=== PATIENT | female | born 1970 | race Caucasian/White ===

== ENCOUNTER 2016-11-26 15:04 | Inpatient (IN) | payer MEDICAID ==
[~2016-11-26] VITALS: Ht 165.1 cm; Wt 84.9 kg
[~2016-11-26 15:04] MED LIST: DOCU-94 PO; ESTR1TAB36 PO; FAM20T PO; GABA-494 PO; MELO7.5S PO; METO-281 PO; OMEP20CA5 PO; OXYB5TAB62 PO; RANI300C7 PO; SUCR1TAB36 PO; TIZA4TAB3 PO
[2016-11-26 15:58] LABS: Basophils # (auto) 0 uL; Basophils % (auto) 0.4 % (0.0-2.0); Eosinophils # (auto) 0.1 uL; Eosinophils % (auto) 0.9 % (0.0-7.0); Hematocrit 39.9 % (36.0-46.0); Hemoglobin 12.8 g/dL (12.2-16.2); Lymphocytes # (auto) 1.4 uL; Lymphocytes % (auto) 16.9 % (10.0-50.0); Mean Corpuscular Hemoglobin 27.8 pg (28.0-32.0); Mean Corpuscular Hgb Conc. 32.2 g/dL (32.0-36.0); Mean Corpuscular Volume 86.3 fL (80.0-100.0); Monocytes # (auto) 0.8 uL; Monocytes % (auto) 9.8 % (0.0-12.0); Neutrophils # (auto) 5.8 uL; Platelet Count (auto) 219 10^3/uL (140-450); Red Cell Distribution Width 14.1 % (11.6-16.0); White Blood Cell 8.1 10^3/uL (4.4-10.8)
[2016-11-26 16:04] LABS: Urine Bilirubin Negative (Negative); Urine Blood TRACE /uL (Negative); Urine Color Yellow (Yellow); Urine Glucose Normal (Normal); Urine Ketone Negative (Negative); Urine Nitrite Negative (Negative); Urine RBC 1 /hpf (0 - 4); Urine Squamous Epithelial Cell FEW /hpf (<5); Urine Urobilinogen Normal (Negative)
[2016-11-26 16:06] LABS: Albumin 3.7 g/dL (3.4-5.0); BUN/Creatinine Ratio 14.9; Bilirubin, Total 0.5 mg/dL (0.2-1.0); Calcium 9.2 mg/dL (8.5-10.1); Potassium 3.7 mmol/L (3.5-5.1)
[2016-11-26] MEDS ORDERED: IOHEXOL 300 MG/ML 100ML BOTTLE IJ ONE (19:56)
[2016-11-26] MEDS ORDERED: MORPHINE SULFATE 4 MG/ML SYRG IV ONE (20:00)
[2016-11-26] MEDS ORDERED: ONDANSETRON HCL 4 MG/2 ML VIAL IV ONE (20:00)
[2016-11-26] MEDS ORDERED: SODIUM CHLORIDE 0.9% 500 ML IVB ONE (20:04)
[2016-11-26] MEDS ORDERED: HYDROmorphone HCL 2 MG/ML VL IV ONE (20:15)
[2016-11-26] MEDS ORDERED: PANTOPRAZOLE SODIUM 40 MG/10 ML VIAL IV ONE (20:15)
[2016-11-26 20:33] LABS: Amylase 47 U/L (25-115)
[2016-11-26] MEDS ORDERED: metroNIDAZOLE 500MG/100ML 100 ML IV ONE (21:00)
[2016-11-26] MEDS: SODIUM CHLORIDE 0.9% 1,000 ML IV SCH (23:20)
[2016-11-26] MEDS ORDERED: HYDROcodone-ACET 5/325MG TAB PO PRN (23:30)
[2016-11-26] MEDS ORDERED: cefTRIAXone 1GM/50ML D5W 50 ML IV ONE (23:30)
[2016-11-26] MEDS ORDERED: TEMAZEPAM 15 MG CAP PO PRN (23:30)
[2016-11-26] MEDS ORDERED: ACETAMINOPHEN 325 MG TAB PO PRN (23:30)
[2016-11-26 23:59] VITALS: BP 116/70
[2016-11-27] MEDS: MORPHINE SULF INJ 2 MG/ML SYRINGE 1ML IV PRN ×3 (00:25→09:30)
[2016-11-27] MEDS: ONDANSETRON HCL 4 MG/2 ML VIAL IV PRN ×6 (01:10→21:42)
[2016-11-27 04:47] VITALS: BP 122/66
[2016-11-27] MEDS: metroNIDAZOLE 500MG/100ML 100 ML IV SCH ×3 (05:32→21:42)
[2016-11-27 06:02] LABS: Basophils # (auto) 0 uL; Basophils % (auto) 0.4 % (0.0-2.0); Eosinophils # (auto) 0.1 uL; Eosinophils % (auto) 2.1 % (0.0-7.0); Hematocrit 35.8 % (36.0-46.0); Hemoglobin 11.4 g/dL (12.2-16.2); Lymphocytes # (auto) 1.6 uL; Lymphocytes % (auto) 27.5 % (10.0-50.0); Mean Corpuscular Hemoglobin 27.5 pg (28.0-32.0); Mean Corpuscular Hgb Conc. 31.9 g/dL (32.0-36.0); Mean Corpuscular Volume 86.3 fL (80.0-100.0); Mean Platelet Volume 10.7 fL (7.4-10.4); Monocytes # (auto) 0.9 uL; Monocytes % (auto) 15.9 % (0.0-12.0); Neutrophils # (auto) 3.2 uL; Neutrophils % (auto) 54.1 % (37.0-80.0); Platelet Count (auto) 199 10^3/uL (140-450); Red Cell Distribution Width 14.6 % (11.6-16.0); White Blood Cell 5.9 10^3/uL (4.4-10.8)
[2016-11-27 06:37] LABS: Albumin 3.1 g/dL (3.4-5.0); BUN/Creatinine Ratio 14.3; Bilirubin, Total 0.5 mg/dL (0.2-1.0); Potassium 3.6 mmol/L (3.5-5.1); Total Protein 6.6 g/dL (6.4-8.2)
[2016-11-27] MEDS: SUCRALFATE 1 GM/10 ML ORAL SUSP PO SCH ×2 (07:03→17:45)
[2016-11-27 09:00] VITALS: BP 116/53
[2016-11-27] MEDS: cefTRIAXone 1GM/50ML D5W 50 ML IV SCH (09:29)
[2016-11-27] MEDS: OXYBUTYNIN CHL 5 MG TAB PO SCH ×2 (09:30→21:42)
[2016-11-27] MEDS: FAMOTIDINE 20 MG TAB PO SCH ×2 (09:30→21:42)
[2016-11-27] MEDS: DOCUSATE SOD 100 MG CAP PO SCH ×3 (09:30→21:42)
[2016-11-27] MEDS: GABAPENTIN 100 MG CAP PO SCH ×2 (09:30→21:42)
[2016-11-27] MEDS: ENOXAPARIN SOD 40 MG/0.4 ML SYRINGE SC SCH (09:36)
[2016-11-27] MEDS ORDERED: ENOXAPARIN SOD 30 MG/0.3 ML SYRINGE SC SCH (10:00)
[2016-11-27 13:00] VITALS: BP 131/72
[2016-11-27] MEDS: HYDROmorphone HCL 2 MG/ML VL IV PRN ×3 (13:31→21:42)
[2016-11-27 17:00] VITALS: BP 117/76
[2016-11-27] MEDS: SODIUM CHLORIDE 0.9% 1,000 ML IV SCH (17:40)
[2016-11-27 22:00] VITALS: BP 127/70
[2016-11-28] MEDS: ONDANSETRON HCL 4 MG/2 ML VIAL IV PRN (03:26)
[2016-11-28] MEDS: HYDROmorphone HCL 2 MG/ML VL IV PRN ×3 (03:26→21:35)
[2016-11-28 05:00] VITALS: BP 123/123
[2016-11-28] MEDS: metroNIDAZOLE 500MG/100ML 100 ML IV SCH ×3 (05:18→21:27)
[2016-11-28] MEDS: SUCRALFATE 1 GM/10 ML ORAL SUSP PO SCH ×2 (06:09→17:42)
[2016-11-28 09:00] VITALS: BP 125/70
[2016-11-28] MEDS: ENOXAPARIN SOD 40 MG/0.4 ML SYRINGE SC SCH (09:00)
[2016-11-28] MEDS: SODIUM CHLORIDE 0.9% 1,000 ML IV SCH (09:00)
[2016-11-28] MEDS: cefTRIAXone 1GM/50ML D5W 50 ML IV SCH (09:00)
[2016-11-28] MEDS: DOCUSATE SOD 100 MG CAP PO SCH ×2 (09:06→21:27)
[2016-11-28 12:58] VITALS: BP 120/76
[2016-11-28] MEDS: PROMETHAZINE HCL 25 MG/ML 1ML IV PRN ×2 (13:08→21:28)
[2016-11-28] MEDS: OXYBUTYNIN CHL 5 MG TAB PO SCH ×2 (14:04→21:27)
[2016-11-28] MEDS: GABAPENTIN 100 MG CAP PO SCH ×2 (14:04→21:27)
[2016-11-28] MEDS: FAMOTIDINE 20 MG TAB PO SCH ×2 (14:05→21:26)
[2016-11-28 16:39] VITALS: BP 118/77
[2016-11-28 21:24] VITALS: BP 129/69
[2016-11-29] MEDS: HYDROmorphone HCL 2 MG/ML VL IV PRN ×7 (02:09→22:34)
[2016-11-29] MEDS: SODIUM CHLORIDE 0.9% 1,000 ML IV SCH ×2 (02:17→17:49)
[2016-11-29 05:00] VITALS: BP 114/75
[2016-11-29] MEDS: PROMETHAZINE HCL 25 MG/ML 1ML IV PRN ×6 (05:16→22:35)
[2016-11-29] MEDS: metroNIDAZOLE 500MG/100ML 100 ML IV SCH ×3 (05:20→22:35)
[2016-11-29] MEDS: SUCRALFATE 1 GM/10 ML ORAL SUSP PO SCH ×3 (07:27→16:11)
[2016-11-29] MEDS: DOCUSATE SOD 100 MG CAP PO SCH ×2 (08:51→22:36)
[2016-11-29] MEDS: ENOXAPARIN SOD 40 MG/0.4 ML SYRINGE SC SCH (08:51)
[2016-11-29] MEDS: cefTRIAXone 1GM/50ML D5W 50 ML IV SCH (08:52)
[2016-11-29] MEDS: FAMOTIDINE 20 MG TAB PO SCH ×2 (08:52→22:35)
[2016-11-29] MEDS: OXYBUTYNIN CHL 5 MG TAB PO SCH ×2 (08:52→22:36)
[2016-11-29] MEDS: GABAPENTIN 100 MG CAP PO SCH ×2 (08:52→22:35)
[2016-11-29 09:00] VITALS: BP 115/68
[2016-11-29 09:25] LABS: Basophils # (auto) 0 uL; Basophils % (auto) 0.6 % (0.0-2.0); Eosinophils # (auto) 0.1 uL; Eosinophils % (auto) 1.2 % (0.0-7.0); Hematocrit 36.5 % (36.0-46.0); Hemoglobin 11.8 g/dL (12.2-16.2); Lymphocytes # (auto) 1.1 uL; Mean Corpuscular Hemoglobin 27.8 pg (28.0-32.0); Mean Corpuscular Hgb Conc. 32.4 g/dL (32.0-36.0); Mean Corpuscular Volume 85.8 fL (80.0-100.0); Mean Platelet Volume 10.1 fL (7.4-10.4); Monocytes # (auto) 0.4 uL; Monocytes % (auto) 8.7 % (0.0-12.0); Neutrophils # (auto) 3.1 uL; Neutrophils % (auto) 65.5 % (37.0-80.0); Platelet Count (auto) 230 10^3/uL (140-450); Red Cell Distribution Width 14.4 % (11.6-16.0); White Blood Cell 4.8 10^3/uL (4.4-10.8)
[2016-11-29 13:00] VITALS: BP 138/76
[2016-11-29 17:00] VITALS: BP 121/65
[2016-11-29 21:53] VITALS: BP 173/62
[2016-11-29 21:56] VITALS: BP 121/70
[2016-11-30] MEDS: HYDROmorphone HCL 2 MG/ML VL IV PRN ×7 (02:24→21:23)
[2016-11-30] MEDS: PROMETHAZINE HCL 25 MG/ML 1ML IV PRN ×7 (02:24→21:23)
[2016-11-30 05:06] VITALS: BP 116/76
[2016-11-30] MEDS: metroNIDAZOLE 500MG/100ML 100 ML IV SCH ×3 (06:00→21:23)
[2016-11-30] MEDS: SUCRALFATE 1 GM/10 ML ORAL SUSP PO SCH ×2 (06:48→17:39)
[2016-11-30] MEDS: SODIUM CHLORIDE 0.9% 1,000 ML IV SCH (06:49)
[2016-11-30] MEDS: cefTRIAXone 1GM/50ML D5W 50 ML IV SCH (08:40)
[2016-11-30] MEDS: OXYBUTYNIN CHL 5 MG TAB PO SCH ×2 (09:42→21:24)
[2016-11-30] MEDS: FAMOTIDINE 20 MG TAB PO SCH ×2 (09:42→21:24)
[2016-11-30] MEDS: GABAPENTIN 100 MG CAP PO SCH ×2 (09:42→21:24)
[2016-11-30] MEDS: ENOXAPARIN SOD 40 MG/0.4 ML SYRINGE SC SCH (09:42)
[2016-11-30] MEDS: DOCUSATE SOD 100 MG CAP PO SCH ×2 (09:42→21:24)
[2016-11-30 12:00] VITALS: BP 130/77
[2016-11-30 16:23] VITALS: BP 142/52
[2016-11-30 16:25] VITALS: BP 130/72
[2016-11-30 22:00] VITALS: BP 121/71
[2016-12-01] MEDS: PROMETHAZINE HCL 25 MG/ML 1ML IV PRN ×4 (01:01→11:07)
[2016-12-01] MEDS: HYDROmorphone HCL 2 MG/ML VL IV PRN ×4 (01:01→11:07)
[2016-12-01] MEDS: SODIUM CHLORIDE 0.9% 1,000 ML IV SCH (01:44)
[2016-12-01 05:00] VITALS: BP 130/73
[2016-12-01] MEDS: metroNIDAZOLE 500MG/100ML 100 ML IV SCH (06:06)
[2016-12-01] MEDS: SUCRALFATE 1 GM/10 ML ORAL SUSP PO SCH (06:06)
[2016-12-01 09:00] VITALS: BP 135/79
[2016-12-01] MEDS: cefTRIAXone 1GM/50ML D5W 50 ML IV SCH (09:35)
[2016-12-01] MEDS: ENOXAPARIN SOD 40 MG/0.4 ML SYRINGE SC SCH (09:35)
[2016-12-01] MEDS: GABAPENTIN 100 MG CAP PO SCH (09:36)
[2016-12-01] MEDS: FAMOTIDINE 20 MG TAB PO SCH (09:36)
[2016-12-01] MEDS: OXYBUTYNIN CHL 5 MG TAB PO SCH (09:36)
[2016-12-01] MEDS: DOCUSATE SOD 100 MG CAP PO SCH (09:37)
== END 2016-12-01 12:40 | disposition home or self-care (01) | DRG 244 ==
LOC: ER 15:11 → EAST 15:12
PROVIDERS: ADMIT Internal Medicine; ATTEND Internal Medicine
DX: K57.32 Diverticulitis of large intestine without perforation or abscess without bleeding (principal); K90.0 Celiac disease; F32.9 Major depressive disorder, single episode, unspecified; E78.5 Hyperlipidemia, unspecified; F17.210 Nicotine dependence, cigarettes, uncomplicated; K21.9 Gastro-esophageal reflux disease without esophagitis; K57.90 Diverticulosis of intestine, part unspecified, without perforation or abscess without bleeding; D35.02 Benign neoplasm of left adrenal gland; D18.00 Hemangioma unspecified site; E86.0 Dehydration; Z81.8 Family history of other mental and behavioral disorders; Z82.49 Family history of ischemic heart disease and other diseases of the circulatory system; Z83.3 Family history of diabetes mellitus; Z87.442 Personal history of urinary calculi; Z90.710 Acquired absence of both cervix and uterus; Z98.51 Tubal ligation status; Z80.9 Family history of malignant neoplasm, unspecified; Z88.1 Allergy status to other antibiotic agents; Z91.018 Allergy to other foods
CPT/HCPCS: 36415; 74177; 80053; 81001; 82150; 83690; 84702; 85025; 94761; 96361; 96365; 96367; 96375; 96376; C9113; J0696; J2405; J3490

== ENCOUNTER 2017-01-23 09:38 | Emergency (ER) | payer MEDICAID ==
[~2017-01-23] VITALS: Ht 165.1 cm; Wt 75.7 kg
[2017-01-23 11:05] VITALS: BP 142/101
[2017-01-23] MEDS ORDERED: HYDROmorphone HCL 2 MG/ML VL IM ONE (11:30)
[2017-01-23] MEDS ORDERED: SUMAtriptan SUCCINATE 6 MG/0.5 ML VL SC ONE (11:30)
[2017-01-23] MEDS ORDERED: ONDANSETRON HCL 4 MG/2 ML VIAL IM ONE (11:30)
== END 2017-01-23 12:31 | disposition home or self-care (01) ==
LOC: ER 09:38
DX: J32.1 Chronic frontal sinusitis (principal); G43.909 Migraine, unspecified, not intractable, without status migrainosus; F17.210 Nicotine dependence, cigarettes, uncomplicated; K21.9 Gastro-esophageal reflux disease without esophagitis; E78.5 Hyperlipidemia, unspecified
CPT/HCPCS: 96372; 99284; J1170; J2405; J3030

== ENCOUNTER 2017-05-28 14:27 | Emergency (ER) | payer MEDICAID ==
[~2017-05-28] VITALS: Ht 165.1 cm; Wt 79.4 kg
[~2017-05-28 14:27] MED LIST changes: +ESTR1TAB3 PO; -ESTR1TAB36 PO; -OMEP20CA5 PO; +OMEP20CA74 PO
[2017-05-28 15:59] LABS: Urine Bilirubin Negative (Negative); Urine Blood Negative /uL (Negative); Urine Ca Oxalate Crystal MOD (None Seen); Urine Color Yellow (Yellow); Urine Glucose Normal (Normal); Urine Ketone Negative (Negative); Urine Mucus FEW (None Seen); Urine Nitrite Negative (Negative); Urine RBC 2 /hpf (0 - 4); Urine Squamous Epithelial Cell FEW /hpf (<5); Urine Urobilinogen Normal (Negative); Urine pH 5.5 (5.0-8.0)
[2017-05-28 16:26] LABS: Basophils # (auto) 0 uL; Basophils % (auto) 0.4 % (0.0-2.0); CONDITION Y; Eosinophils # (auto) 0.1 uL; Eosinophils % (auto) 1.3 % (0.0-7.0); Hemoglobin 14.6 g/dL (12.2-16.2); Lymphocytes # (auto) 2.1 uL; Lymphocytes % (auto) 26.4 % (10.0-50.0); Mean Corpuscular Hgb Conc. 33.1 g/dL (32.0-36.0); Mean Corpuscular Volume 87.5 fL (80.0-100.0); Mean Platelet Volume 10.5 fL (7.4-10.4); Monocytes # (auto) 0.9 uL; Monocytes % (auto) 11.9 % (0.0-12.0); Neutrophils # (auto) 4.7 uL; Platelet Count (auto) 211 10^3/uL (140-450); Red Cell Distribution Width 13.9 % (11.6-16.0); White Blood Cell 7.8 10^3/uL (4.4-10.8)
[2017-05-28 16:29] LABS: BUN/Creatinine Ratio 21.4; Bilirubin, Total 0.6 mg/dL (0.2-1.0); Calcium 8.8 mg/dL (8.5-10.1); Potassium 3.9 mmol/L (3.5-5.1); Total Protein 7.8 g/dL (6.4-8.2)
[2017-05-29] MEDS ORDERED: cefTRIAXone 1GM/50ML D5W 50 ML IV ONE (04:15)
[2017-05-29] MEDS ORDERED: ONDANSETRON HCL 4 MG/2 ML VIAL IV ONE (04:15)
[2017-05-29] MEDS ORDERED: NALBUPHINE HCL 10 MG/1ml INJECTION IV ONE (04:15)
[2017-05-29] MEDS ORDERED: metroNIDAZOLE 500MG/100ML 100 ML IV ONE (04:15)
[2017-05-29] MEDS ORDERED: SODIUM CHLORIDE 0.9% 500 ML IV ONE (04:15)
[2017-05-29] MEDS ORDERED: HYDROmorphone HCL 2 MG/ML VL IV ONE (05:30)
[2017-05-29 07:42] VITALS: BP 114/80
== END 2017-05-29 08:20 | disposition home or self-care (01) ==
LOC: ER 14:27
DX: K57.90 Diverticulosis of intestine, part unspecified, without perforation or abscess without bleeding (principal); F17.210 Nicotine dependence, cigarettes, uncomplicated; Z87.442 Personal history of urinary calculi; K21.9 Gastro-esophageal reflux disease without esophagitis; E78.5 Hyperlipidemia, unspecified; Z90.710 Acquired absence of both cervix and uterus; Z98.51 Tubal ligation status; Z88.1 Allergy status to other antibiotic agents
CPT/HCPCS: 36415; 74176; 80053; 81001; 85025; 96365; 96367; 96375; 99285; J0696; J1170; J2300; J2405; J3490; J7030

== ENCOUNTER 2017-06-04 12:55 | Inpatient (IN) | payer MEDICAID ==
[~2017-06-04] VITALS: Ht 165.1 cm; Wt 81.1 kg
[2017-06-04] MEDS ORDERED: KETOROLAC TROMETH 60MG/2ML VIAL IM ONE (14:00)
[2017-06-04] MEDS ORDERED: ONDANSETRON ODT 4 MG TAB PO ONE (14:15)
[2017-06-04] MEDS ORDERED: PROCHLORPERAZINE EDISYLATE 5 MG/ML 2ML VIAL IV ONE (14:45)
[2017-06-04] MEDS ORDERED: SODIUM CHLORIDE 0.9% 1,000 ML IV ONE (14:45)
[2017-06-04 15:26] LABS: Basophils # (auto) 0 uL; Basophils % (auto) 0.3 % (0.0-2.0); CONDITION Y; Eosinophils # (auto) 0 uL; Eosinophils % (auto) 0.4 % (0.0-7.0); Hematocrit 32.8 % (36.0-46.0); Hemoglobin 10.9 g/dL (12.2-16.2); Lymphocytes # (auto) 1.6 uL; Lymphocytes % (auto) 26.8 % (10.0-50.0); Mean Corpuscular Hemoglobin 28.9 pg (28.0-32.0); Mean Corpuscular Hgb Conc. 33.4 g/dL (32.0-36.0); Mean Corpuscular Volume 86.5 fL (80.0-100.0); Monocytes # (auto) 0.8 uL; Monocytes % (auto) 13.5 % (0.0-12.0); Neutrophils # (auto) 3.4 uL; Platelet Count (auto) 170 10^3/uL (140-450); Red Cell Distribution Width 13.9 % (11.6-16.0); White Blood Cell 5.8 10^3/uL (4.4-10.8)
[2017-06-04 15:34] LABS: Albumin 2.3 g/dL (3.4-5.0)
[2017-06-04 15:36] LABS: BUN/Creatinine Ratio 20.8
[2017-06-04 15:39] LABS: Bilirubin, Total 0.2 mg/dL (0.2-1.0); Total Protein 4.5 g/dL (6.4-8.2)
[2017-06-04] MEDS ORDERED: LORazepam 2MG/ML-1ML VIAL IV ONE (15:45)
[2017-06-04 15:52] LABS: Calcium 5.1 mg/dL (8.5-10.1)
[2017-06-04] MEDS ORDERED: POTASSIUM CHL 20MEQ/100ML 100 ML IV ONE (16:00)
[2017-06-04] MEDS ORDERED: NITROGLYCERIN 0.4 MG SL TAB SL PRN (16:15)
[2017-06-04] MEDS ORDERED: SODIUM CHLORIDE 0.9% 1,000 ML IV SCH (16:15)
[2017-06-04] MEDS ORDERED: MORPHINE SULF INJ 2 MG/ML SYRINGE 1ML IV PRN (16:15)
[2017-06-04] MEDS ORDERED: POTASSIUM CHLORIDE 40 MEQ, LIDOCAINE 1% (LOCAL ANESTH.) 4 ML in SODIUM CHL 0.9% 250 ML IV ONE (16:15)
[2017-06-04] MEDS ORDERED: ACETAMINOPHEN 500 MG TAB PO PRN (16:15)
[2017-06-04] MEDS ORDERED: PANTOPRAZOLE SODIUM 40 MG/10 ML VIAL IV ONE (16:15)
[2017-06-04 17:08] LABS: Magnesium 1.4 mg/dL (1.6-2.6)
[2017-06-04] MEDS ORDERED: POTASSIUM CHL 20 Meq TABLET PO ONE ×2 (17:15→21:36)
[2017-06-04 17:38] LABS: Urine Bilirubin Negative (Negative); Urine Blood Negative /uL (Negative); Urine Color Yellow (Yellow); Urine Glucose Normal (Normal); Urine Ketone TRACE (Negative); Urine Nitrite Negative (Negative); Urine RBC <1 /hpf (0 - 4); Urine Squamous Epithelial Cell FEW /hpf (<5); Urine Urobilinogen Normal (Negative); Urine pH 6.5 (5.0-8.0)
[2017-06-04] MEDS: SODIUM BICARBONATE 50ML VIAL 50 ML in SOD CHL 0.45% 1,000 ML IV SCH (22:00)
[2017-06-04] MEDS ORDERED: GABAPENTIN 300 MG CAP PO SCH (22:00)
[2017-06-04 22:30] VITALS: BP 133/78
[2017-06-04] MEDS: POTASSIUM CHL 20 Meq TABLET PO SCH (23:08)
[2017-06-04 23:23] LABS: BUN/Creatinine Ratio 15.3; Calcium 7.3 mg/dL (8.5-10.1); Potassium 3.8 mmol/L (3.5-5.1)
[2017-06-05] MEDS: MORPHINE SULF INJ 2 MG/ML SYRINGE 1ML IV PRN ×3 (01:06→09:56)
[2017-06-05 02:12] VITALS: BP 133/78
[2017-06-05] MEDS ORDERED: FAMO-12 PO (03:58)
[2017-06-05] MEDS ORDERED: GABA-497 PO (04:01)
[2017-06-05] MEDS ORDERED: TOPI100T68 PO (04:14)
[2017-06-05] MEDS ORDERED: SUMA50TA16 PO (04:14)
[2017-06-05] MEDS ORDERED: IBUP600T27 PO (04:17)
[2017-06-05] MEDS ORDERED: METR500T PO (04:17)
[2017-06-05] MEDS ORDERED: CYCL0.05 EACHEYE (04:17)
[2017-06-05 04:57] VITALS: BP 123/69
[2017-06-05 06:22] LABS: Basophils # (auto) 0 uL; Basophils % (auto) 0.4 % (0.0-2.0); CONDITION Y; Eosinophils # (auto) 0.1 uL; Eosinophils % (auto) 1.9 % (0.0-7.0); Hematocrit 38.7 % (36.0-46.0); Hemoglobin 12.9 g/dL (12.2-16.2); Lymphocytes # (auto) 2.1 uL; Lymphocytes % (auto) 36.6 % (10.0-50.0); Mean Corpuscular Hemoglobin 29.3 pg (28.0-32.0); Mean Corpuscular Hgb Conc. 33.5 g/dL (32.0-36.0); Mean Corpuscular Volume 87.4 fL (80.0-100.0); Mean Platelet Volume 10.9 fL (7.4-10.4); Monocytes # (auto) 0.7 uL; Monocytes % (auto) 11.4 % (0.0-12.0); Neutrophils # (auto) 2.9 uL; Neutrophils % (auto) 49.7 % (37.0-80.0); Platelet Count (auto) 205 10^3/uL (140-450); Red Cell Distribution Width 14.5 % (11.6-16.0); White Blood Cell 5.8 10^3/uL (4.4-10.8)
[2017-06-05 06:45] LABS: Albumin 3.3 g/dL (3.4-5.0); BUN/Creatinine Ratio 14.1; Bilirubin, Total 0.5 mg/dL (0.2-1.0); Calcium 8.1 mg/dL (8.5-10.1); Potassium 4.2 mmol/L (3.5-5.1); Total Protein 6.7 g/dL (6.4-8.2)
[2017-06-05 08:06] LABS: Thyroid Peroxidase (TPO) Ab 11 IU/mL (0-34)
[2017-06-05 09:00] VITALS: BP 125/76
[2017-06-05] MEDS: POTASSIUM CHL 20 Meq TABLET PO SCH ×2 (09:55→23:39)
[2017-06-05] MEDS: PANTOPRAZOLE SODIUM 40 MG/10 ML VIAL IV SCH (09:56)
[2017-06-05 10:08] LABS: Sjogren's Anti-SS-A Antibody <0.2 AI (0.0-0.9)
[2017-06-05] MEDS: MAGNESIUM SULFATE 1GM/100ML 100 ML IV SCH ×3 (12:00→16:04)
[2017-06-05 13:00] VITALS: BP 127/84
[2017-06-05] MEDS: HYDROcodone-ACET 5/325MG TAB PO PRN (13:07)
[2017-06-05] MEDS: HYDROmorphone HCL 2 MG/ML VL IV PRN ×3 (14:13→22:58)
[2017-06-05] MEDS: SODIUM BICARBONATE 50ML VIAL 50 ML in SOD CHL 0.45% 1,000 ML IV SCH (14:17)
[2017-06-05] MEDS ORDERED: BACLOFEN 10 MG TAB PO PRN (18:15)
[2017-06-05] MEDS ORDERED: MAGNESIUM SULFATE 1GM/100ML 100 ML IV ONE (18:18)
[2017-06-05] MEDS: ONDANSETRON HCL 4 MG/2 ML VIAL IV PRN (20:12)
[2017-06-05 21:30] VITALS: BP 132/77
[2017-06-06] MEDS: HYDROmorphone HCL 2 MG/ML VL IV PRN ×5 (03:18→20:30)
[2017-06-06 05:23] VITALS: BP 117/63
[2017-06-06 05:58] LABS: Basophils # (auto) 0 uL; Basophils % (auto) 0.4 % (0.0-2.0); CONDITION Y; Eosinophils # (auto) 0.1 uL; Eosinophils % (auto) 1.8 % (0.0-7.0); Hematocrit 42.4 % (36.0-46.0); Lymphocytes # (auto) 1.6 uL; Lymphocytes % (auto) 28.7 % (10.0-50.0); Mean Corpuscular Hgb Conc. 33.1 g/dL (32.0-36.0); Mean Corpuscular Volume 87.6 fL (80.0-100.0); Mean Platelet Volume 11.1 fL (7.4-10.4); Monocytes # (auto) 0.7 uL; Monocytes % (auto) 11.7 % (0.0-12.0); Neutrophils # (auto) 3.2 uL; Neutrophils % (auto) 57.4 % (37.0-80.0); Platelet Count (auto) 214 10^3/uL (140-450); Red Cell Distribution Width 14.2 % (11.6-16.0); White Blood Cell 5.7 10^3/uL (4.4-10.8)
[2017-06-06 06:50] LABS: Potassium 4.2 mmol/L (3.5-5.1)
[2017-06-06 07:04] LABS: BUN/Creatinine Ratio 11.3; Bilirubin, Total 0.9 mg/dL (0.2-1.0); Calcium 8.7 mg/dL (8.5-10.1); Total Protein 7.3 g/dL (6.4-8.2)
[2017-06-06 07:30] VITALS: BP 120/76
[2017-06-06] MEDS: ONDANSETRON HCL 4 MG/2 ML VIAL IV PRN ×3 (08:39→17:46)
[2017-06-06] MEDS: POTASSIUM CHL 20 Meq TABLET PO SCH ×2 (08:39→21:51)
[2017-06-06] MEDS: PANTOPRAZOLE SODIUM 40 MG/10 ML VIAL IV SCH (08:39)
[2017-06-06 09:00] VITALS: BP 120/76
[2017-06-06] MEDS: SODIUM BICARBONATE 50ML VIAL 50 ML in SOD CHL 0.45% 1,000 ML IV SCH (12:22)
[2017-06-06] MEDS: LIDOCAINE 5% TOPICAL PATCH TOP SCH (12:23)
[2017-06-06 13:00] VITALS: BP 121/71
[2017-06-06] MEDS: KETOROLAC TROMETH 30 MG/ML 1ML VIAL IV PRN (14:11)
[2017-06-06 16:56] LABS: Phosphorus 4.3 mg/dL (2.5-4.90)
[2017-06-06 17:00] VITALS: BP 138/71
[2017-06-06 21:47] VITALS: BP 123/84
[2017-06-06] MEDS: TEMAZEPAM 15 MG CAP PO PRN (21:51)
[2017-06-07] MEDS: HYDROmorphone HCL 2 MG/ML VL IV PRN ×6 (00:30→21:34)
[2017-06-07 05:06] VITALS: BP 135/88
[2017-06-07 06:47] LABS: BUN/Creatinine Ratio 17.9; Calcium 8.9 mg/dL (8.5-10.1); Potassium 4.3 mmol/L (3.5-5.1)
[2017-06-07 07:30] VITALS: BP 120/76
[2017-06-07] MEDS: ONDANSETRON HCL 4 MG/2 ML VIAL IV PRN ×3 (08:32→18:14)
[2017-06-07] MEDS: POTASSIUM CHL 20 Meq TABLET PO SCH ×2 (08:54→21:34)
[2017-06-07] MEDS: PANTOPRAZOLE SODIUM 40 MG/10 ML VIAL IV SCH (08:54)
[2017-06-07 09:00] VITALS: BP 123/80
[2017-06-07] MEDS: SODIUM BICARBONATE 50ML VIAL 50 ML in SOD CHL 0.45% 1,000 ML IV SCH (09:48)
[2017-06-07] MEDS: LIDOCAINE 5% TOPICAL PATCH TOP SCH (09:49)
[2017-06-07 10:08] LABS: Anti-intermyofibrillar Ab Negative (Neg:<1:20); Anti-sarcolemma Antibody Negative (Neg:<1:20)
[2017-06-07 13:00] VITALS: BP 127/72
[2017-06-07] MEDS: KETOROLAC TROMETH 30 MG/ML 1ML VIAL IV PRN (15:23)
[2017-06-07 16:58] VITALS: BP 110/50
[2017-06-07 17:00] VITALS: BP 125/75
[2017-06-07] MEDS: TEMAZEPAM 15 MG CAP PO PRN (21:35)
[2017-06-08] MEDS: HYDROmorphone HCL 2 MG/ML VL IV PRN ×9 (01:30→22:38)
[2017-06-08 02:14] VITALS: BP 127/63
[2017-06-08 05:00] VITALS: BP 138/69
[2017-06-08] MEDS: SODIUM BICARBONATE 50ML VIAL 50 ML in SOD CHL 0.45% 1,000 ML IV SCH (05:26)
[2017-06-08 06:43] LABS: BUN/Creatinine Ratio 17.1; Calcium 8.9 mg/dL (8.5-10.1); Potassium 4.1 mmol/L (3.5-5.1)
[2017-06-08 09:00] VITALS: BP 124/79
[2017-06-08] MEDS: PANTOPRAZOLE SODIUM 40 MG/10 ML VIAL IV SCH (09:35)
[2017-06-08] MEDS: POTASSIUM CHL 20 Meq TABLET PO SCH ×2 (09:35→22:38)
[2017-06-08] MEDS: LIDOCAINE 5% TOPICAL PATCH TOP SCH (09:35)
[2017-06-08 10:08] LABS: Vitamin D 25-Hydroxy 36 ng/mL (.); Vitamin D-2 25-Hydroxy <1.0 ng/mL (.)
[2017-06-08] MEDS ORDERED: BACLOFEN 10 MG TAB PO PRN (10:30)
[2017-06-08] MEDS ORDERED: IOHEXOL 300 MG/ML 100ML BOTTLE IJ ONE (11:19)
[2017-06-08] MEDS: ONDANSETRON HCL 4 MG/2 ML VIAL IV PRN ×3 (11:57→22:39)
[2017-06-08 12:49] VITALS: BP 135/71
[2017-06-08 17:00] VITALS: BP 115/75
[2017-06-08 21:30] VITALS: BP 118/73
[2017-06-08] MEDS: TEMAZEPAM 15 MG CAP PO PRN (22:47)
[2017-06-09] MEDS: HYDROmorphone HCL 2 MG/ML VL IV PRN ×12 (00:31→23:03)
[2017-06-09] MEDS: SODIUM BICARBONATE 50ML VIAL 50 ML in SOD CHL 0.45% 1,000 ML IV SCH (02:11)
[2017-06-09 05:00] VITALS: BP 125/75
[2017-06-09] MEDS: ONDANSETRON HCL 4 MG/2 ML VIAL IV PRN ×2 (08:37→19:38)
[2017-06-09 09:00] VITALS: BP 121/76
[2017-06-09] MEDS: PANTOPRAZOLE SODIUM 40 MG/10 ML VIAL IV SCH (09:21)
[2017-06-09] MEDS: LIDOCAINE 5% TOPICAL PATCH TOP SCH (09:21)
[2017-06-09] MEDS: POTASSIUM CHL 20 Meq TABLET PO SCH ×2 (09:21→22:21)
[2017-06-09 13:00] VITALS: BP 116/68
[2017-06-09 17:00] VITALS: BP 137/70
[2017-06-09] MEDS ORDERED: LORazepam 2MG/ML-1ML VIAL IV PRN (17:15)
[2017-06-09] MEDS: DOCUSATE SOD 100 MG CAP PO SCH (22:20)
[2017-06-09] MEDS: GABAPENTIN 300 MG CAP PO SCH (22:20)
[2017-06-09] MEDS: CARISOPRODOL 350 MG TAB PO SCH (22:21)
[2017-06-09 22:33] VITALS: BP 130/70
[2017-06-09] MEDS: TEMAZEPAM 15 MG CAP PO PRN (23:02)
[2017-06-10] MEDS: SODIUM BICARBONATE 50ML VIAL 50 ML in SOD CHL 0.45% 1,000 ML IV SCH (01:27)
[2017-06-10 05:31] VITALS: BP 119/75
[2017-06-10] MEDS: GABAPENTIN 300 MG CAP PO SCH ×3 (05:37→21:55)
[2017-06-10] MEDS: HYDROmorphone HCL 2 MG/ML VL IV PRN ×6 (05:37→22:09)
[2017-06-10 06:07] LABS: Basophils # (auto) 0 uL; Basophils % (auto) 0.4 % (0.0-2.0); CONDITION Y; Eosinophils # (auto) 0.1 uL; Eosinophils % (auto) 2.1 % (0.0-7.0); Hematocrit 38.8 % (36.0-46.0); Hemoglobin 13.1 g/dL (12.2-16.2); Lymphocytes # (auto) 1.5 uL; Lymphocytes % (auto) 24.8 % (10.0-50.0); Mean Corpuscular Hemoglobin 29.2 pg (28.0-32.0); Mean Corpuscular Hgb Conc. 33.6 g/dL (32.0-36.0); Mean Corpuscular Volume 86.9 fL (80.0-100.0); Mean Platelet Volume 10.6 fL (7.4-10.4); Monocytes # (auto) 0.8 uL; Monocytes % (auto) 13.4 % (0.0-12.0); Neutrophils # (auto) 3.6 uL; Neutrophils % (auto) 59.3 % (37.0-80.0); Platelet Count (auto) 189 10^3/uL (140-450); Red Cell Distribution Width 13.7 % (11.6-16.0); White Blood Cell 6.1 10^3/uL (4.4-10.8)
[2017-06-10 06:36] LABS: Albumin 3.3 g/dL (3.4-5.0); BUN/Creatinine Ratio 15.1; Bilirubin, Total 0.5 mg/dL (0.2-1.0); Potassium 3.9 mmol/L (3.5-5.1); Total Protein 6.8 g/dL (6.4-8.2)
[2017-06-10] MEDS: ONDANSETRON HCL 4 MG/2 ML VIAL IV PRN ×3 (07:02→18:57)
[2017-06-10 09:13] VITALS: BP 134/78
[2017-06-10] MEDS: PANTOPRAZOLE SODIUM 40 MG/10 ML VIAL IV SCH (09:39)
[2017-06-10] MEDS: DOCUSATE SOD 100 MG CAP PO SCH ×2 (09:39→21:56)
[2017-06-10] MEDS: LIDOCAINE 5% TOPICAL PATCH TOP SCH (09:40)
[2017-06-10] MEDS: POTASSIUM CHL 20 Meq TABLET PO SCH ×2 (09:40→21:56)
[2017-06-10 13:00] VITALS: BP_SYST 115; BP_SYST 124; BP_DIAS 68; BP_DIAS 71
[2017-06-10 17:02] VITALS: BP 127/75
[2017-06-10] MEDS: CARISOPRODOL 350 MG TAB PO SCH (21:56)
[2017-06-11] MEDS: SODIUM BICARBONATE 50ML VIAL 50 ML in SOD CHL 0.45% 1,000 ML IV SCH ×3 (00:43→23:24)
[2017-06-11] MEDS: HYDROmorphone HCL 2 MG/ML VL IV PRN ×10 (00:51→22:39)
[2017-06-11 05:00] VITALS: BP 122/74
[2017-06-11] MEDS: GABAPENTIN 300 MG CAP PO SCH ×3 (05:48→22:38)
[2017-06-11] MEDS: ONDANSETRON HCL 4 MG/2 ML VIAL IV PRN ×3 (08:22→16:27)
[2017-06-11 09:00] VITALS: BP 144/83
[2017-06-11] MEDS ORDERED: FLEET ENEMA(ADULT) 135 ML PR ONE (09:30)
[2017-06-11] MEDS ORDERED: DOCUSATE SOD 100 MG CAP PO PRN (09:30)
[2017-06-11] MEDS: LIDOCAINE 5% TOPICAL PATCH TOP SCH (10:00)
[2017-06-11] MEDS: POTASSIUM CHL 20 Meq TABLET PO SCH ×2 (10:13→22:38)
[2017-06-11] MEDS: PANTOPRAZOLE SODIUM 40 MG/10 ML VIAL IV SCH (10:13)
[2017-06-11 13:00] VITALS: BP 133/79
[2017-06-11 16:58] VITALS: BP 129/75
[2017-06-11 21:37] VITALS: BP 134/70
[2017-06-11] MEDS: CARISOPRODOL 350 MG TAB PO SCH (22:38)
[2017-06-12] MEDS: TEMAZEPAM 15 MG CAP PO PRN (02:02)
[2017-06-12] MEDS: HYDROmorphone HCL 2 MG/ML VL IV PRN ×4 (02:02→10:25)
[2017-06-12 05:00] VITALS: BP 125/73
[2017-06-12] MEDS: GABAPENTIN 300 MG CAP PO SCH ×2 (07:08→13:18)
[2017-06-12 08:00] VITALS: BP 112/70
[2017-06-12 09:00] VITALS: BP 112/70
[2017-06-12] MEDS ORDERED: CARISOPRODOL 350 MG TAB PO SCH (10:00)
[2017-06-12] MEDS: LIDOCAINE 5% TOPICAL PATCH TOP SCH (10:24)
[2017-06-12] MEDS: POTASSIUM CHL 20 Meq TABLET PO SCH (10:24)
[2017-06-12] MEDS: ONDANSETRON HCL 4 MG/2 ML VIAL IV PRN (10:24)
[2017-06-12] MEDS: PANTOPRAZOLE SODIUM 40 MG/10 ML VIAL IV SCH (10:24)
[2017-06-12] MEDS: HYDROcodone-ACET 5/325MG TAB PO PRN (12:33)
[2017-06-12 12:45] VITALS: BP 112/70
[2017-06-12 13:00] VITALS: BP 138/60
== END 2017-06-12 14:51 | disposition home or self-care (01) | DRG 347 ==
LOC: ER 12:55 → TELE 12:56 → TELE-WESTW 22:10
PROVIDERS: ADMIT Nurse Practitioner Family; ATTEND Internal Medicine
DX: M47.22 Other spondylosis with radiculopathy, cervical region (principal); N17.0 Acute kidney failure with tubular necrosis; G62.9 Polyneuropathy, unspecified; N25.89 Other disorders resulting from impaired renal tubular function; M48.02 Spinal stenosis, cervical region; F32.9 Major depressive disorder, single episode, unspecified; M25.512 Pain in left shoulder; F17.210 Nicotine dependence, cigarettes, uncomplicated; K21.9 Gastro-esophageal reflux disease without esophagitis; D64.9 Anemia, unspecified; E78.5 Hyperlipidemia, unspecified; G25.81 Restless legs syndrome; E66.9 Obesity, unspecified; G43.909 Migraine, unspecified, not intractable, without status migrainosus; G89.29 Other chronic pain; K44.9 Diaphragmatic hernia without obstruction or gangrene; M19.90 Unspecified osteoarthritis, unspecified site; Z79.899 Other long term (current) drug therapy; Z81.8 Family history of other mental and behavioral disorders; Z82.49 Family history of ischemic heart disease and other diseases of the circulatory system; Z83.3 Family history of diabetes mellitus; Z87.442 Personal history of urinary calculi; Z87.440 Personal history of urinary (tract) infections; Z88.1 Allergy status to other antibiotic agents; Z91.018 Allergy to other foods; Z90.710 Acquired absence of both cervix and uterus; Z98.51 Tubal ligation status; Z80.9 Family history of malignant neoplasm, unspecified; Z68.29 Body mass index [BMI] 29.0-29.9, adult
CPT/HCPCS: 36415; 71010; 72126; 72141; 73030; 76775; 80048; 80053; 81001; 82306; 82436; 82962; 83516; 83735; 83970; 84100; 84133; 84300; 84484; 84702; 85025; 85379; 85652; 86225; 86235; 87086; 93005; 93971; 96361; 96372; 96374; 96375; C9113; J1885; J2001; J2405; J3480; Q0162

== ENCOUNTER 2017-07-19 07:13 | Emergency (ER) | payer MEDICAID ==
[~2017-07-19] VITALS: Ht 165.1 cm; Wt 77.1 kg
[~2017-07-19 07:13] MED LIST changes: +CYCL0.05 EACHEYE; -FAM20T PO; +FAMO-12 PO; -GABA-494 PO; +GABA-497 PO; +IBUP600T27 PO; +METR500T PO; -OXYB5TAB62 PO; +SUMA50TA16 PO; +TOPI100T68 PO
[2017-07-19 07:22] VITALS: BP 159/71
[2017-07-19] MEDS ORDERED: KETOROLAC TROMETH 60MG/2ML VIAL IM ONE (08:15)
== END 2017-07-19 09:04 | disposition home or self-care (01) ==
LOC: ER 07:13
DX: M51.36 Other intervertebral disc degeneration, lumbar region (principal); M54.16 Radiculopathy, lumbar region; K21.9 Gastro-esophageal reflux disease without esophagitis; F41.9 Anxiety disorder, unspecified; E78.5 Hyperlipidemia, unspecified; Z87.442 Personal history of urinary calculi; Z98.51 Tubal ligation status; Z90.710 Acquired absence of both cervix and uterus; F17.210 Nicotine dependence, cigarettes, uncomplicated; Z88.1 Allergy status to other antibiotic agents; Z88.8 Allergy status to other drugs, medicaments and biological substances; Z79.899 Other long term (current) drug therapy
CPT/HCPCS: 72100; 96372; 99284; J1885

== ENCOUNTER 2017-09-15 11:24 | Emergency (ER) | payer MEDICAID ==
[~2017-09-15] VITALS: Ht 165.1 cm; Wt 77.1 kg
[2017-09-15 12:08] VITALS: BP 132/92
[2017-09-15 13:08] LABS: Basophils # (auto) 0 uL; Basophils % (auto) 0.5 % (0.0-2.0); Eosinophils # (auto) 0 uL; Eosinophils % (auto) 0.3 % (0.0-7.0); Hematocrit 44.9 % (36.0-46.0); Hemoglobin 15.2 g/dL (12.2-16.2); Lymphocytes # (auto) 1.7 uL; Lymphocytes % (auto) 17.6 % (10.0-50.0); Mean Corpuscular Hemoglobin 30.2 pg (28.0-32.0); Mean Corpuscular Hgb Conc. 33.8 g/dL (32.0-36.0); Mean Corpuscular Volume 89.2 fL (80.0-100.0); Monocytes # (auto) 0.8 uL; Monocytes % (auto) 8.3 % (0.0-12.0); Neutrophils % (auto) 73.3 % (37.0-80.0); Nucleated Red Blood Cells % 0.1 %; Platelet Count (auto) 238 10^3/uL (140-450); Red Cell Distribution Width 14.6 % (11.8-14.3); White Blood Cell 9.5 10^3/uL (4.4-10.8)
[2017-09-15 13:14] LABS: Urine Bilirubin Negative (Negative); Urine Blood Negative /uL (Negative); Urine Glucose Normal (Normal); Urine Ketone Negative (Negative); Urine Mucus FEW (None Seen); Urine Nitrite Negative (Negative); Urine RBC 2 /hpf (0 - 4); Urine Squamous Epithelial Cell FEW /hpf (<5); Urine pH 8.5 (5.0-8.0)
[2017-09-15 13:19] LABS: Urine Color Straw (Yellow)
[2017-09-15 13:37] LABS: Albumin 4.5 g/dL (3.4-5.0); BUN/Creatinine Ratio 20.8; Bilirubin, Total 0.5 mg/dL (0.2-1.0); Calcium 9.5 mg/dL (8.5-10.1); Potassium 3.5 mmol/L (3.5-5.1); Total Protein 8.6 g/dL (6.4-8.2)
[2017-09-16] MEDS ORDERED: LISI-275 PO (10:19)
[2017-09-16] MEDS ORDERED: METH750T3 PO (10:19)
[2017-09-16] MEDS ORDERED: FAM20T PO (10:19)
[2017-09-16] MEDS ORDERED: SIMV40TA96 PO (10:20)
[2017-09-16] MEDS ORDERED: FENO5TAB PO (10:21)
[2017-09-16] MEDS ORDERED: HYDR2TAB29 PO (10:21)
== END 2017-09-15 17:11 | disposition left against medical advice (07) ==
LOC: ER 11:24
DX: R11.2 Nausea with vomiting, unspecified (principal); Z53.21 Procedure and treatment not carried out due to patient leaving prior to being seen by health care provider
CPT/HCPCS: 36415; 80053; 81001; 85025

== ENCOUNTER 2017-09-16 08:35 | Emergency (ER) | payer MEDICAID ==
[~2017-09-16] VITALS: Ht 165.1 cm; Wt 78.9 kg
[2017-09-16] MEDS ORDERED: SODIUM CHLORIDE 0.9% 500 ML IVB ONE (09:21)
[2017-09-16] MEDS ORDERED: PANTOPRAZOLE 40 MG/10 ML VIAL IV STA (09:21)
[2017-09-16] MEDS ORDERED: ONDANSETRON HCL 4 MG/2 ML VIAL IV ONE (09:30)
[2017-09-16] MEDS ORDERED: MORPHINE SULFATE 10 MG/ML INJ 1ML SDV IV ONE (09:30)
[2017-09-16 09:54] LABS: Basophils # (auto) 0 uL; Basophils % (auto) 0.7 % (0.0-2.0); Eosinophils # (auto) 0 uL; Eosinophils % (auto) 0.4 % (0.0-7.0); Hematocrit 45.4 % (36.0-46.0); Hemoglobin 14.9 g/dL (12.2-16.2); Lymphocytes # (auto) 1.3 uL; Lymphocytes % (auto) 21.4 % (10.0-50.0); Mean Corpuscular Hemoglobin 28.8 pg (28.0-32.0); Mean Corpuscular Hgb Conc. 32.7 g/dL (32.0-36.0); Mean Corpuscular Volume 88.1 fL (80.0-100.0); Monocytes # (auto) 0.6 uL; Monocytes % (auto) 10.1 % (0.0-12.0); Neutrophils # (auto) 4.2 uL; Neutrophils % (auto) 67.4 % (37.0-80.0); Nucleated Red Blood Cells % 0.1 %; Platelet Count (auto) 247 10^3/uL (140-450); Red Blood Cells 5.16 10^6/uL (4.0-5.20); Red Cell Distribution Width 14.5 % (11.8-14.3); White Blood Cell 6.3 10^3/uL (4.4-10.8)
[2017-09-16 10:14] VITALS: BP 102/54
[2017-09-16 10:14] LABS: Magnesium 2.4 mg/dL (1.6-2.6)
[2017-09-16 10:18] LABS: Urine Bacteria FEW /hpf (None Seen); Urine Blood TRACE /uL (Negative); Urine Mucus FEW (None Seen); Urine Specific Gravity 1.033 (1.001-1.035); Urine WBC 5 /hpf (0 - 5)
[2017-09-16] MEDS ORDERED: METH750T3 PO (10:19)
[2017-09-16] MEDS ORDERED: LISI-275 PO (10:19)
[2017-09-16] MEDS ORDERED: FAM20T PO (10:19)
[2017-09-16] MEDS ORDERED: SIMV40TA96 PO (10:20)
[2017-09-16] MEDS ORDERED: FENO5TAB PO (10:21)
[2017-09-16] MEDS ORDERED: HYDR2TAB29 PO (10:21)
[2017-09-16 10:32] LABS: Albumin 4.6 g/dL (3.4-5.0); BUN/Creatinine Ratio 19.8; Bilirubin, Total 0.7 mg/dL (0.2-1.0); Calcium 9.8 mg/dL (8.5-10.1); Potassium 3.4 mmol/L (3.5-5.1); Total Protein 8.7 g/dL (6.4-8.2)
== END 2017-09-16 14:24 | disposition home or self-care (01) ==
LOC: ER 08:35
DX: R10.9 Unspecified abdominal pain (principal); K21.9 Gastro-esophageal reflux disease without esophagitis; E78.5 Hyperlipidemia, unspecified; I10 Essential (primary) hypertension; G89.29 Other chronic pain; M54.9 Dorsalgia, unspecified; Z98.51 Tubal ligation status; Z90.710 Acquired absence of both cervix and uterus; Z79.899 Other long term (current) drug therapy; Z88.1 Allergy status to other antibiotic agents; Z88.8 Allergy status to other drugs, medicaments and biological substances
CPT/HCPCS: 36415; 74176; 80053; 81001; 82150; 83690; 83735; 84702; 85025; 96361; 96374; 96375; 99285; C9113; J2270; J2405; J7030

== ENCOUNTER 2017-12-11 17:46 | Inpatient (IN) | payer MEDICAID ==
[~2017-12-11] VITALS: Ht 153.7 cm; Wt 81.4 kg
[~2017-12-11 17:46] MED LIST changes: -ESTR1TAB3 PO; +FAM20T PO; -FAMO-12 PO; +FENO5TAB PO; -GABA-497 PO; +GABA300C10 PO; +HYDR2TAB58 PO; -IBUP600T27 PO; +LISI-275 PO; -MELO7.5S PO; +METH750T3 PO; -METR500T PO; -RANI300C7 PO; +SIMV40TA96 PO; -SUCR1TAB36 PO
[2017-12-11 18:45] LABS: Basophils # (auto) 0 uL; Basophils % (auto) 0.5 % (0.0-2.0); Eosinophils # (auto) 0.1 uL; Eosinophils % (auto) 0.9 % (0.0-7.0); Hematocrit 42.3 % (36.0-46.0); Hemoglobin 13.7 g/dL (12.2-16.2); Lymphocytes % (auto) 22.2 % (10.0-50.0); Mean Corpuscular Hemoglobin 28.9 pg (28.0-32.0); Mean Corpuscular Hgb Conc. 32.3 g/dL (32.0-36.0); Mean Corpuscular Volume 89.4 fL (80.0-100.0); Monocytes % (auto) 11.6 % (0.0-12.0); Neutrophils # (auto) 5.8 uL; Neutrophils % (auto) 64.8 % (37.0-80.0); Platelet Count (auto) 246 10^3/uL (140-450); Red Blood Cells 4.74 10^6/uL (4.0-5.20); Red Cell Distribution Width 14.4 % (11.8-14.3)
[2017-12-11 19:03] LABS: Albumin 4.3 g/dL (3.4-5.0); BUN/Creatinine Ratio 16.5; Bilirubin, Total 0.3 mg/dL (0.2-1.0); Potassium 3.6 mmol/L (3.5-5.1); Total Protein 8.3 g/dL (6.4-8.2)
[2017-12-11 19:56] LABS: Urine Bacteria FEW /hpf (None Seen); Urine Blood Negative /uL (Negative); Urine Mucus FEW (None Seen); Urine Specific Gravity 1.022 (1.001-1.035); Urine WBC 4 /hpf (0 - 5)
[2017-12-12] MEDS ORDERED: ONDANSETRON HCL 4 MG/2 ML VIAL IV ONE (03:00)
[2017-12-12] MEDS ORDERED: PIPERACILLIN-TAZOB 2.25GM 50 ML IV ONE (03:00)
[2017-12-12] MEDS ORDERED: MORPHINE SULFATE 10 MG/ML INJ 1ML SDV IV ONE (03:00)
[2017-12-12] MEDS ORDERED: metroNIDAZOLE 500MG/100ML 100 ML IV ONE (03:00)
[2017-12-12] MEDS ORDERED: SODIUM CHLORIDE 0.9% 1,000 ML IV ONE (03:00)
[2017-12-12] MEDS ORDERED: ACETAMINOPHEN 500 MG TAB PO PRN (05:00)
[2017-12-12] MEDS: metroNIDAZOLE 500MG/100ML 100 ML IV SCH ×3 (06:24→21:09)
[2017-12-12 06:57] LABS: Basophils # (auto) 0 uL; Basophils % (auto) 0.5 % (0.0-2.0); Eosinophils # (auto) 0.1 uL; Eosinophils % (auto) 1.1 % (0.0-7.0); Hematocrit 38.1 % (36.0-46.0); Hemoglobin 12.6 g/dL (12.2-16.2); Lymphocytes # (auto) 1.7 uL; Lymphocytes % (auto) 25.6 % (10.0-50.0); Mean Corpuscular Hemoglobin 29.5 pg (28.0-32.0); Mean Corpuscular Volume 89.4 fL (80.0-100.0); Monocytes % (auto) 14.5 % (0.0-12.0); Neutrophils # (auto) 3.9 uL; Neutrophils % (auto) 58.3 % (37.0-80.0); Nucleated Red Blood Cells % 0.1 %; Platelet Count (auto) 196 10^3/uL (140-450); Red Blood Cells 4.26 10^6/uL (4.0-5.20); Red Cell Distribution Width 14.4 % (11.8-14.3); White Blood Cell 6.7 10^3/uL (4.4-10.8)
[2017-12-12] MEDS ORDERED: HYDROmorphone HCL 2 MG/ML VL IV PRN (07:00)
[2017-12-12 07:06] LABS: BUN/Creatinine Ratio 22.1; Calcium 8.5 mg/dL (8.5-10.1); Potassium 3.7 mmol/L (3.5-5.1)
[2017-12-12] MEDS: HYDROcodone-ACET 5/325MG TAB PO PRN (08:47)
[2017-12-12] MEDS: cefTRIAXone 1GM/10ml IVPUSH 10 ML IV SCH (08:48)
[2017-12-12 09:00] VITALS: BP_SYST 123; BP_SYST 126; BP_DIAS 43; BP_DIAS 70
[2017-12-12] MEDS: LORazepam 2MG/ML-1ML VIAL IV PRN (10:37)
[2017-12-12 12:00] VITALS: BP 116/66
[2017-12-12] MEDS: ONDANSETRON HCL 4 MG/2 ML VIAL IV PRN (14:26)
[2017-12-12 17:30] VITALS: BP 109/56
[2017-12-12] MEDS: MORPHINE SULFATE 10 MG/ML INJ 1ML SDV IV PRN (19:00)
[2017-12-12 22:00] VITALS: BP 106/64
[2017-12-13] VITALS (7 sets, daily range): BP systolic 102–124; BP diastolic 59–75
[2017-12-13] MEDS ORDERED: MORPHINE SULF INJ 2 MG/ML SYRINGE 1ML ONE ×3 (04:11→21:39)
[2017-12-13] MEDS: ONDANSETRON HCL 4 MG/2 ML VIAL IV PRN ×5 (04:16→22:03)
[2017-12-13] MEDS: MORPHINE SULFATE 10 MG/ML INJ 1ML SDV IV PRN ×3 (04:16→21:54)
[2017-12-13] MEDS: metroNIDAZOLE 500MG/100ML 100 ML IV SCH ×3 (05:41→21:46)
[2017-12-13 06:48] LABS: Basophils # (auto) 0 uL; Basophils % (auto) 0.5 % (0.0-2.0); Eosinophils # (auto) 0.1 uL; Eosinophils % (auto) 1.2 % (0.0-7.0); Hematocrit 37.4 % (36.0-46.0); Hemoglobin 12.4 g/dL (12.2-16.2); Lymphocytes # (auto) 0.9 uL; Lymphocytes % (auto) 17.1 % (10.0-50.0); Mean Corpuscular Hemoglobin 29.4 pg (28.0-32.0); Mean Corpuscular Hgb Conc. 33.3 g/dL (32.0-36.0); Mean Corpuscular Volume 88.3 fL (80.0-100.0); Monocytes # (auto) 0.6 uL; Monocytes % (auto) 12.4 % (0.0-12.0); Neutrophils # (auto) 3.4 uL; Neutrophils % (auto) 68.8 % (37.0-80.0); Nucleated Red Blood Cells % 0.1 %; Platelet Count (auto) 192 10^3/uL (140-450); Red Blood Cells 4.23 10^6/uL (4.0-5.20); Red Cell Distribution Width 13.9 % (11.8-14.3)
[2017-12-13 07:03] LABS: Calcium 8.9 mg/dL (8.5-10.1)
[2017-12-13 07:06] LABS: Albumin 3.5 g/dL (3.4-5.0); BUN/Creatinine Ratio 16.7
[2017-12-13 07:10] LABS: Bilirubin, Total 0.3 mg/dL (0.2-1.0); Total Protein 6.7 g/dL (6.4-8.2)
[2017-12-13] MEDS: cefTRIAXone 1GM/10ml IVPUSH 10 ML IV SCH (09:09)
[2017-12-13] MEDS: LORazepam 2MG/ML-1ML VIAL IV PRN (12:42)
[2017-12-13] MEDS: HYDROcodone-ACET 5/325MG TAB PO PRN (21:28)
[2017-12-14] MEDS ORDERED: MORPHINE SULF INJ 2 MG/ML SYRINGE 1ML IV PRN (02:00)
[2017-12-14] MEDS: ONDANSETRON HCL 4 MG/2 ML VIAL IV PRN (02:55)
[2017-12-14] MEDS: metroNIDAZOLE 500MG/100ML 100 ML IV SCH (04:44)
[2017-12-14 05:36] VITALS: BP 107/64
[2017-12-14 05:39] LABS: Basophils # (auto) 0 uL; Basophils % (auto) 0.5 % (0.0-2.0); Eosinophils # (auto) 0.1 uL; Eosinophils % (auto) 1.6 % (0.0-7.0); Hematocrit 38.2 % (36.0-46.0); Hemoglobin 12.9 g/dL (12.2-16.2); Lymphocytes # (auto) 1.1 uL; Lymphocytes % (auto) 23.4 % (10.0-50.0); Mean Corpuscular Hemoglobin 29.5 pg (28.0-32.0); Mean Corpuscular Hgb Conc. 33.6 g/dL (32.0-36.0); Mean Corpuscular Volume 87.6 fL (80.0-100.0); Monocytes # (auto) 0.6 uL; Monocytes % (auto) 12.8 % (0.0-12.0); Neutrophils % (auto) 61.7 % (37.0-80.0); Nucleated Red Blood Cells % 0.1 %; Platelet Count (auto) 205 10^3/uL (140-450); Red Blood Cells 4.36 10^6/uL (4.0-5.20); Red Cell Distribution Width 14.1 % (11.8-14.3); White Blood Cell 4.8 10^3/uL (4.4-10.8)
[2017-12-14 06:09] LABS: Albumin 3.7 g/dL (3.4-5.0); BUN/Creatinine Ratio 12.6; Bilirubin, Total 0.5 mg/dL (0.2-1.0); Calcium 8.4 mg/dL (8.5-10.1); Potassium 3.8 mmol/L (3.5-5.1); Total Protein 7.2 g/dL (6.4-8.2)
[2017-12-14 09:00] VITALS: BP 94/62
[2017-12-14] MEDS: cefTRIAXone 1GM/10ml IVPUSH 10 ML IV SCH (09:01)
[2017-12-14 13:00] VITALS: BP_SYST 137; BP_SYST 91; BP_DIAS 52; BP_DIAS 92
== END 2017-12-14 13:15 | disposition home or self-care (01) | DRG 244 ==
LOC: ER 17:50 → OVERFLOW 17:51 → EAST 12-12 09:36
PROVIDERS: ADMIT Nurse Practitioner Family; ATTEND Internal Medicine
DX: K57.32 Diverticulitis of large intestine without perforation or abscess without bleeding (principal); G62.9 Polyneuropathy, unspecified; I10 Essential (primary) hypertension; N39.0 Urinary tract infection, site not specified; K21.9 Gastro-esophageal reflux disease without esophagitis; M54.30 Sciatica, unspecified side; E78.5 Hyperlipidemia, unspecified; F41.9 Anxiety disorder, unspecified; K22.70 Barrett's esophagus without dysplasia; F32.9 Major depressive disorder, single episode, unspecified; K57.90 Diverticulosis of intestine, part unspecified, without perforation or abscess without bleeding; M19.90 Unspecified osteoarthritis, unspecified site; R63.0 Anorexia; Z82.49 Family history of ischemic heart disease and other diseases of the circulatory system; Z83.3 Family history of diabetes mellitus; Z87.11 Personal history of peptic ulcer disease; Z81.8 Family history of other mental and behavioral disorders; Z87.442 Personal history of urinary calculi; Z90.710 Acquired absence of both cervix and uterus; Z79.899 Other long term (current) drug therapy; Z68.34 Body mass index [BMI] 34.0-34.9, adult; Z88.1 Allergy status to other antibiotic agents; Z88.8 Allergy status to other drugs, medicaments and biological substances
CPT/HCPCS: 36415; 74176; 80048; 80053; 81001; 84702; 85025; 96361; 96365; 96367; 96375; J2405; J2543; J3490

== ENCOUNTER 2021-03-07 11:05 | Emergency (ER) | payer MEDICAID ==
[~2021-03-07] VITALS: Ht 165.1 cm; Wt 81.6 kg
[~2021-03-07 11:05] MED LIST changes: -FAM20T PO; +FAMO20TA10 PO; -SIMV40TA96 PO; -SUMA50TA16 PO; -TOPI100T68 PO
[2021-03-07] MEDS ORDERED: MORPHINE SULFATE 4 MG/ML SYR/VIAL IV ONE (11:15)
[2021-03-07] MEDS ORDERED: ONDANSETRON HCL 4 MG/2 ML VIAL IV ONE (11:15)
[2021-03-07 11:17] VITALS: BP 108/71
[2021-03-07 11:58] LABS: Basophils # (auto) 0 10 ^3/uL (0-0.2); Basophils % (auto) 0.6 % (0.0-2.0); Eosinophils # (auto) 0.1 10 ^3/uL (0-0.8); Eosinophils % (auto) 0.7 % (0.0-7.0); Hematocrit 43.5 % (36.0-46.0); Hemoglobin 14.6 g/dL (12.2-16.2); Lymphocytes # (auto) 2.4 10 ^3/uL (0.4-5.4); Lymphocytes % (auto) 34.2 % (10.0-50.0); Mean Corpuscular Hemoglobin 28.8 pg (28.0-32.0); Mean Corpuscular Hgb Conc. 33.7 g/dL (32.0-36.0); Mean Corpuscular Volume 85.7 fL (80.0-100.0); Monocytes # (auto) 0.7 10 ^3/uL (0-1.3); Monocytes % (auto) 9.4 % (0.0-12.0); Neutrophils # (auto) 3.9 10 ^3/uL (1.6-8.6); Neutrophils % (auto) 55.1 % (37.0-80.0); Nucleated Red Blood Cells % 0.1 %; Platelet Count (auto) 249 10^3/uL (140-450); Red Blood Cells 5.07 10^6/uL (4.0-5.20); Red Cell Distribution Width 14.6 % (11.8-14.3); White Blood Cell 7.1 10^3/uL (4.4-10.8)
[2021-03-07 12:34] LABS: Albumin 4.4 g/dL (3.4-5.0); Calcium 9.5 mg/dL (8.5-10.1); Total Protein 8.2 g/dL (6.4-8.2)
[2021-03-07 13:11] LABS: Urine Bacteria NONE SEEN /hpf (None Seen); Urine Blood Negative /uL (Negative); Urine Mucus FEW (None Seen); Urine Specific Gravity 1.039 (1.001-1.035); Urine WBC 3 /hpf (0 - 5)
== END 2021-03-07 13:49 | disposition home or self-care (01) ==
LOC: ER 11:05
DX: R10.30 Lower abdominal pain, unspecified (principal); I10 Essential (primary) hypertension; E78.5 Hyperlipidemia, unspecified; K21.9 Gastro-esophageal reflux disease without esophagitis; Z90.49 Acquired absence of other specified parts of digestive tract; Z79.899 Other long term (current) drug therapy; Z88.8 Allergy status to other drugs, medicaments and biological substances
CPT/HCPCS: 36415; 74176; 80053; 81001; 83690; 85025; 96374; 99284; J2405